=== PATIENT | female | born 1980 | race Caucasian/White ===

== ENCOUNTER 2024-03-17 04:44 | Emergency (ER) | payer OTHER, SELFPAY ==
[2024-03-17 04:48] VITALS: BP 170/94
--- NOTE | 2024-03-17 05:09 | ED.GENMED ---
History of Present Illness
<SALVATORE Early - Last Filed: 03/17/24 06:23>
General
Chief Complaint: Musculo-Skeletal Complaint
Source: patient
Exam Limitations: none
Time Seen by Provider: 03/17/24 05:07
Nursing documentation reviewed up to this point in time: agreed with
History of Present Illness
History of Present Illness:
44 year old female presents for evaluation of swollen and painful right middle finger. Pt was first evaluated for similar sx at an urgent care in [place] in 2021, where she was treated for suspected cellulitis. She was asymptomatic until February of 2024
when the same symptoms returned. Pt was seen via [facility] and was prescribed antibiotics for presumed cellulitis. Pt reports that her symptoms were relieved temporarily, but endorses increased swelling and pain of her right middle finger over the
last 48 hours. No injury or laceration of the finger. Her symptoms have historically been more severe in the morning. She was evaluated at [facility] on 03/16; XR showed no evidence of fracture. Pt will be undergoing MRI of her right
middle finger later today. She reports that she took 3 tabs of Advil and 2 tabs of Tylenol for her pain at approximately 1530 on 03/16 which provided mild pain relief. She endorses associated decreased ROM of her right middle finger. No fever,
chills, N/V, radiation of pain, or discharge/bleeding from the finger.
Review of Systems
<SALVATORE Early - Last Filed: 03/17/24 06:23>
Review of Systems
Allergies reviewed?: Yes
Constitutional: Reports no symptoms
EENT: Reports no symptoms
Respiratory: Reports no symptoms
Cardiac: Reports no symptoms
ABD/GI: Reports no symptoms
Musculoskeletal: Reports joint pain and joint swelling
Skin: Reports no symptoms
Neurological: Reports no symptoms
Phy Exam
<SALVATORE Early - Last Filed: 03/17/24 06:23>
General Physical Exam
General Presentation: well appearing
General age: appears stated age
General Skin: warm
General Habitus: normal
General Mental: alert
General Hydration: appears well hydrated
Cardiovascular Exam
Cardiovascular Exam: regular rate/rhythm
Pulmonary Exam
Pulmonary Exam: lungs clear and no respiratory distress
Neurological Exam
Neurological Exam: alert, oriented x3 and no sensory deficits
Musculoskeletal Exam
Musculoskeletal Exam: edema (edema of right third digit, mainly from MCP to PIP ) and other (limited ROM of right third digit )
Skin Exam
Skin Exam: normal color, warm/dry and no rash
Course
<SALVATORE Early - Last Filed: 03/17/24 06:23>
Orders/Labs/Results
Orders:
Orders
03/17/24 05:46
Ketorolac [Toradol] 60 mg IM NOW STA
Vital Signs
Initial and Last Documented VS:
Initial Vital Signs
Temp Pulse Resp BP Pulse Ox
98.1 F 83 20 170/94 96
03/17/24 04:48 03/17/24 04:48 03/17/24 04:48 03/17/24 04:48 03/17/24 04:48
Last Documented Vital Signs
Temp Pulse Resp BP Pulse Ox
98.1 F 74 20 155/89 99
03/17/24 04:48 03/17/24 06:06 03/17/24 06:06 03/17/24 06:06 03/17/24 06:06
<Solange Grewal DO - Last Filed: 03/17/24 05:57>
Orders/Labs/Results
Orders:
Orders
03/17/24 05:46
Ketorolac [Toradol] 60 mg IM NOW STA
Vital Signs
Initial and Last Documented VS:
Initial Vital Signs
Temp Pulse Resp BP Pulse Ox
98.1 F 83 20 170/94 96
03/17/24 04:48 03/17/24 04:48 03/17/24 04:48 03/17/24 04:48 03/17/24 04:48
Last Documented Vital Signs
Temp Pulse Resp BP Pulse Ox
98.1 F 74 20 155/89 99
03/17/24 04:48 03/17/24 06:06 03/17/24 06:06 03/17/24 06:06 03/17/24 06:06
<SALVATORE Early - Last Filed: 03/17/24 06:23>
MDM/Problems Addressed
Differential Diagnosis Includes:
Tenosynovitis
MDM/Problems Addressed:
Ketorolac [Toradol] 60 mg IM
<SALVATORE Early - Last Filed: 03/17/24 06:23>
*Critical Care Note
Total Time (30-74mins, 75-104mins- exclusive of procedures): Not Applicable
<Solange Grewal DO - Last Filed: 03/17/24 05:57>
*Pulse Oximetry
Patient hypoxic: no
*Critical Care Note
Total Time (30-74mins, 75-104mins- exclusive of procedures): Not Applicable
ED Attending Note
<SALVATORE Early - Last Filed: 03/17/24 06:23>
-
Portions of this chart may have been created with voice recognition software.� Occasional wrong word or��sound alike� substitutions may have occurred due to the inherent limitations of voice recognition software.
<Solange Grewal DO - Last Filed: 03/17/24 05:57>
ED Attending Note
Patient seen and examined by attending physician: Yes
I performed a history and physical exam of patient and discussed management with resident, I reviewed resident's note and agree with documented findings and plan of care.: Yes
ED Attending Note:
This is a 44-year-old woman who complains of more than 1 month history of right long digit pain, swelling. Initially placed on a course of antibiotics a month ago without relief. Pain seems to be improving over the past few weeks but then has
worsened over the past week prompting urgent visit with orthopedics yesterday. She was evaluated at Dr. Tylor Shearer's office yesterday, reportedly had x-rays that were unremarkable and was planned for MRI of her right long digit for which she has
scheduled later today.
She did take some ibuprofen and Tylenol yesterday afternoon but admits that she tends to avoid taking medicines as she states she was brought up trying to avoid taking [id number] medications.
She has not had a fever nor chills. No weakness but does admit to increased pain with flexion of her long digit and limited flexion related to pain and swelling.
She denies injury but admits to somewhat similar episode of swelling and pain to this same digit in 2021. At that time symptoms seem to resolve after course of antibiotics.
She woke up this morning with return of pain and swelling, has not taken anything for pain and came to the ED for further evaluation.
GENERAL: 44-year-old woman appears her stated age, awake and alert, pleasant, appears in no acute distress.
ENT: Oral mucosa is moist. No rhinorrhea.
CARDIAC: Regular rate and rhythm. no murmur.
LUNGS: Clear breath sounds bilaterally, no acute respiratory distress, no wheezes/rales/rhonchi
ABDOMEN: Rotund, nontender
NEUROLOGICAL: Alert and oriented x3, no focal neuro deficits. Gait is bui and steady.
SKIN: Warm and dry, normal color, skin intact. No rash.
MUSCULOSKELETAL: No C/C/E. peripheral pulses are full and equal b/l. There is moderate focal soft tissue swelling about the proximal aspect of the right long digit with moderately restricted flexion of PIP joint right long digit. There is very
mild global erythema bilateral palms but no focal redness, no palpable heat. Distal sensation and strength intact. Rapid capillary refill. There is no ecchymosis.
PSYCH: Normal and appropriate interaction.
Patient presents with 1 month history of bright long digit pain, swelling primarily flexor aspect of the proximal aspect of the right long digit concerning for flexor tendinitis, flexor tenosynovitis.
As symptoms have been ongoing for a month without fever, nothing on exam to suspect smoldering infection, no indication for antibiotics at this time.
She is scheduled for MRI as an outpatient later today with follow-up with orthopedics.
Recommend she continue with NSAID pain medication and will give an IM dose of Toradol.
She can continue [id number] ibuprofen 600 mg every 6-8 hours as needed for pain. Encouraged to take this with something in her stomach.
Follow-up with orthopedics as already planned.
Discharge Plan
Departure
Patient Disposition: Home (Routine Discharge)
Date of Disposition: 03/17/24
Time of Disposition: 05:47
Patient with high blood pressure during this ER visit?: Yes
Condition: Good
Discharge Problem:
chronic pain right long digit, Tendinitis of finger of right hand
Instructions: Tendinopathy (DC), BLOOD PRESSURE
Prescriptions:
No Action
Xyzal
5 mg PO DAILY
Referrals:
Tylor Shearer MD [Active] -
Interventions
Interventions:
*Risk Screen - Suicide Last Done: 03/17/24 04:48
*General Assessment Last Done: 03/17/24 04:48
*Neglect/Abuse Screening Last Done: 03/17/24 04:48
ED- Fall Risk Assessment Last Done: 03/17/24 04:48
*ED COVID-19 Vaccine History Last Done: 03/17/24 04:48
*Nursing Disposition Last Done: 03/17/24 06:08
ED-Musculoskeletal Assessment Last Done: 03/17/24 05:17
Discharge Date and Time
Discharge Date/Time: 03/17/24 06:13
Print Language: [email or web address]
[2024-03-17 05:16] VITALS: BMI 34.7
[2024-03-17] MEDS: TORADOL 60 MG IM (06:03)
[2024-03-17 06:06] VITALS: BP 155/89
== END 2024-03-17 06:13 | disposition home or self-care (01) ==
LOC: EMR 04:44
PROVIDERS: EMERGENCY PHYSICIAN Emergency Medicine
DX: G89.29 Other chronic pain (principal); M79.644 Pain in right finger(s); M77.8 Other enthesopathies, not elsewhere classified; R03.0 Elevated blood-pressure reading, without diagnosis of hypertension
CPT/HCPCS: 99284; 96372